=== PATIENT | female | born 1990 | race Caucasian/White ===

== ENCOUNTER 2017-12-03 12:22 | Emergency (ER) | payer OTHER | END 2017-12-03 13:40 | disposition home or self-care (01) | LOC: E/R 12:22 | DX: K13.79 Other lesions of oral mucosa (principal); R11.0 Nausea | CPT/HCPCS: 99283; Z7502 ==

== ENCOUNTER 2018-02-04 12:35 | Emergency (ER) | payer OTHER ==
[2018-02-04 13:28] LABS: ADD MAN DIFF? NO
[2018-02-04 13:33] LABS: WHITE BLOOD COUNT 6.1 10^3/ul (4.8-10.8)
[2018-02-04 13:33] LABS: BASOPHILS % 0.5 % (0.0-2.0); EOSINOPHILS # 0.1 10^3/ul (0.0-0.5); EOSINOPHILS % 2.1 % (0.0-7.0); HEMOGLOBIN 10.7 g/dl (12.0-16.0); LYMPHOCYTES # 1.8 10^3/ul (0.8-2.9); MEAN CORPUSCULAR HEMOGLOBIN 25.6 pg (29.0-33.0); MEAN CORPUSCULAR HGB CONC 31.5 g/dl (32.0-37.0); MEAN CORPUSCULAR VOLUME 81.3 fl (82.0-101.0); MEAN PLATELET VOLUME 9.6 fl (7.4-10.4); MONOCYTE # 0.5 10^3/ul (0.3-0.9); MONOCYTES % 7.4 % (0.0-11.0); NEUTROPHIL # 3.7 10^3/ul (1.6-7.5); NEUTROPHILS % 60.5 % (39.0-77.0); PLATELET COUNT 396 10^3/UL (140-415); RED BLOOD COUNT 4.18 10^6/ul (4.20-5.40); RED CELL DISTRIBUTION WIDTH 16.3 % (11.5-14.5)
== END 2018-02-04 14:24 | disposition home or self-care (01) ==
LOC: FTE 14:24
DX: S40.021A Contusion of right upper arm, initial encounter (principal); S40.022A Contusion of left upper arm, initial encounter; X58.XXXA Exposure to other specified factors, initial encounter; Y92.9 Unspecified place or not applicable
CPT/HCPCS: 36415; 85025; 99283

== ENCOUNTER 2018-09-20 12:29 | Emergency (ER) | payer OTHER ==
[2018-09-20] MEDS: IBUPROFEN 800 MG TAB PO (14:49)
== END 2018-09-20 15:54 | disposition home or self-care (01) ==
LOC: FTE 12:29
DX: B34.9 Viral infection, unspecified (principal)
CPT/HCPCS: 99282; Z7502